=== PATIENT | female | born 1950 | race Caucasian/White ===

== ENCOUNTER 2020-04-28 15:42 | Emergency (ER) | payer OTHER, MEDICARE, SELFPAY ==
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
[2020-04-28 15:44] VITALS: BP 149/103; PULSE 109; RESP 20; TEMP 36.9; O2SAT 95
[2020-04-28 16:08] VITALS: BP 149/103; PULSE 109; RESP 20; TEMP 36.9; O2SAT 95
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
[2020-04-28 17:05] LABS: Estimated CRCL calculation 57 ml/min; Estimated Glomerular Filt Rate > 60
[2020-04-28 19:27] VITALS: BP 110/73; PULSE 90; RESP 18; O2SAT 100
== END 2020-04-28 19:29 | disposition home or self-care (01) ==
PROVIDERS: Emergency Provider Emergency Medicine
DX: S16.1XXA Strain of muscle, fascia and tendon at neck level, initial encounter (principal); S20.219A Contusion of unspecified front wall of thorax, initial encounter; V43.52XA Car driver injured in collision with other type car in traffic accident, initial encounter
CPT/HCPCS: 70450; 71260; 72125; 99284; Q9967

== ENCOUNTER → 2020-07-22 11:00 | Outpatient (CLI) | payer MEDICARE, SELFPAY ==
--- NOTE | ~2020-07-22 | XR_ITS ---
XR hip RT 2V w AP pelvis DATE: 07/22/2020 11:52 INDICATION: Right hip pain TECHNIQUE: AP pelvis. AP, lateral crosstable lateral views right hip COMPARISON: None FINDINGS: There is mild osteoarthritic spurring of the right femoral head and asymmetric moderate los s of height of the right hip joint. No fracture, dislocation, avascular necrosis or bone destruction of the right hip is detected. Pubic symphysis and sacroiliac joints are intact. No pelvic fracture or bone destruction. IMPRESSION: Right hip osteoarthritis Reviewed, dictated and finalized at location A. 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
== END ==
PROVIDERS: PCP Family Medicine; Visit Provider Nurse Practitioner Family
DX: M16.11 Unilateral primary osteoarthritis, right hip (principal)
CPT/HCPCS: 73502

== ENCOUNTER → 2020-08-26 12:57 | Outpatient (CLI) | payer MEDICARE, SELFPAY ==
--- NOTE | ~2020-08-26 | MR_ITS ---
EXAMINATION: MR hip RT wo con DATE: 08/26/2020 14:03 INDICATION: Right hip pain TECHNIQUE: Magnetic resonance imaging (MRI) of the right hip was performed without intravenous contr ast. Sequences included full-field axial PD-weighted FS FSE and T1-weighted FSE, coronal of the pelvi s with PD-weighted FS FSE, small field of view of the right hip with axial PD-weighted FS FSE, sagit nasir PD-weighted FS FSE and coronal PD weighted FS FSE. Additional radial T1-weighted FGR oriented ort hogonal to the acetabular rim were obtained for evaluation of the labrum. COMPARISON: Contrast dated 07/22/2020 FINDINGS: Bones/labrum/cartilage: Alignment is normal. No fracture, avascular necrosis or pathologic marrow replacing process. Moderat e to severe lumbar spondylosis. Moderate osteoarthritis at the right hip with anterosuperior predomin ant nonuniform joint space narrowing which appears underestimated on the prior radiographs likely due to plane of projection. There is cartilage loss with prominent subarticular edema along the anterosu perior right acetabulum as well as a small region of subarticular edema along the posterolateral aspe ct of the femoral head. There is associated degenerative tearing of the anterosuperior right acetabul um. Fluid: Small right hip joint effusion with synovitis with extension of a small amount of fluid with synoviti s into the right iliopsoas bursa. Soft tissues: Normal and symmetric muscle bulk and signal in the pelvis and visualized proximal thighs. Mild to mod erate tendinopathy of the distal right gluteus medius medias tendon without discrete tear. There is l eft gluteus medius and minimus bursitis with tendinopathy and partial-thickness tear of the distal le ft gluteus minimus tendon which appears attenuated and partial-thickness undersurface tear along the superior facet insertion of the left gluteus medius tendon. The bilateral Iliopsoas and proximal hams tring tendons are normal. Fibroid uterus. Mild scattered sigmoid diverticulosis without adjacent infl ammatory change to suggest diverticulitis. Limited evaluation of visceral organs of the pelvis is oth erwise unremarkable. No pathologically enlarged pelvic/inguinal lymphadenopathy. IMPRESSION: 1. Degenerative tearing of the anterosuperior right acetabular labrum and moderate right hip osteoart hritis with regions of high-grade chondromalacia and likely reactive small right hip joint effusion. 2. Mild left gluteus medius and minimus bursitis with partial thickness tears of the left gluteus med ius and minimus tendons. 3. Moderate tendinopathy of the right gluteus medius tendon without discrete tear. 4. Fibroid uterus. 5. Mild sigmoid diverticulosis. Reviewed, dictated and finalized at location A. 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 Degenerative tearing of the anterosuperior right acetabular labrum and moder ate right hip osteoarthritis with regions of high-grade chondromalacia and like ly reactive small right hip joint effusion. 2. Mild left gluteus medius and minimus bursitis with partial thickness tears o f the left gluteus medius and minimus tendons. 3. Moderate tendinopathy of the right gluteus medius tendon without discrete te ar. 4. Fibroid uterus. 5. Mild sigmoid diverticulosis.
== END ==
PROVIDERS: PCP Nurse Practitioner Family; Visit Provider Nurse Practitioner Family
DX: D25.9 Leiomyoma of uterus, unspecified (principal); K57.30 Diverticulosis of large intestine without perforation or abscess without bleeding; M16.11 Unilateral primary osteoarthritis, right hip
CPT/HCPCS: 73721

== ENCOUNTER 2020-09-30 13:17 | Outpatient (CLI) | payer MEDICARE, SELFPAY ==
--- NOTE | ~2020-09-30 | XR_ITS ---
EXAMINATION: XR lg joint inject/asp w image DATE: 09/30/2020 14:16 INDICATION: Right hip arthritis presenting with right hip pain TECHNIQUE: A time-out was performed to verify the patient's name, date of , and procedure to b e performed. The procedure including the risks, benefits, and alternatives was discussed with the pat ient. Risks discussed included bleeding, allergic reaction and infection. The patient understood the risks and agreed to proceed. The skin overlying the right hip joint was prepped and draped in usual sterile fashion. Anesthetic was administered with 1% lidocaine subcutaneously. A 22 G needle was ad vanced under fluoroscopic guidance into the joint. Injection of 0.6 mL of Omnipaque 240 confirmed in tra-articular position of the needle. Subsequently, injectate consisting of 3 mm of a 2:1 mixture of 0.5% bupivacaine: 80 mg/mL Depo-Medrol for a total dose of 80 mg Depo-Medrol was instilled. Washout of contrast was seen confirming intra-articular administration. The needle was removed and the entry site was cleaned and dressed. There were no immediate complications. Fluoroscopy exposure time was 0 .1 minutes. The total number of images was 2. FINDINGS: Real-time fluoroscopy demonstrates the needle in the right hip joint. Patient's pain prior to procedure:10/20. Patient's pain following the procedure: 09/22. IMPRESSION: 1. Right hip injection of local anesthetic and steroid with decrease in the patient's presenting pain . Reviewed, dictated and finalized at location A. 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 Right hip injection of local anesthetic and steroid with decrease in the pat ient's presenting pain.
== END 2020-09-30 13:18 | disposition home or self-care (01) ==
PROVIDERS: PCP Nurse Practitioner Family; Visit Provider Orthopaedic Surgery
DX: M16.11 Unilateral primary osteoarthritis, right hip (principal)
CPT/HCPCS: 20610; 77002; J1040; Q9966

== ENCOUNTER 2020-10-14 14:04 | Outpatient (CLI) | payer MEDICARE, SELFPAY | END 2020-10-14 14:05 | disposition home or self-care (01) | LOC: ANHCOVIDVC 14:04 | PROVIDERS: PCP Nurse Practitioner Family | DX: Z23 Encounter for immunization (principal) | CPT/HCPCS: 0001A; 91300 ==

== ENCOUNTER 2020-11-04 13:52 | Outpatient (CLI) | payer MEDICARE, SELFPAY | END 2020-11-04 13:53 | disposition home or self-care (01) | LOC: ANHCOVIDVC 13:52 | PROVIDERS: PCP Nurse Practitioner Family | DX: Z23 Encounter for immunization (principal) | CPT/HCPCS: 0002A; 91300 ==

== ENCOUNTER 2020-12-17 14:45 | Outpatient (CLI) | payer MEDICARE, SELFPAY ==
--- NOTE | ~2020-12-17 | MM_ITS ---
EXAMINATION: MM screening bin BI w sohan HISTORY: Screening TECHNIQUE: Craniocaudal and mediolateral oblique 3-D tomosynthesis images were obtained and synthetic 2-D images were generated. CAD analysis was submitted and interpreted. COMPARISON: Comparison to multiple prior studies sequentially, with oldest reviewed study dated 05/15. BREAST PARENCHYMAL COMPOSITION: The breasts are almost entirely fatty. FINDINGS: There is no evidence of suspicious mass, calcification, or architectural distortion to sugg est malignancy in either breast. There has been no suspicious interval change. IMPRESSION: 1. No mammographic evidence of malignancy. 2. Recommend routine screening mammography in one year. BI-RADS Category 1: Negative Reviewed, dictated and finalized at location A.
== END 2020-12-17 14:46 | disposition home or self-care (01) ==
LOC: ANHIMG 14:52
PROVIDERS: PCP Nurse Practitioner Family; Visit Provider Obstetrics & Gynecology
DX: Z12.31 Encounter for screening mammogram for malignant neoplasm of breast (principal)
CPT/HCPCS: 77063; 77067

== ENCOUNTER 2022-02-06 14:17 | Outpatient (CLI) | payer MEDICARE, SELFPAY ==
[2022-02-06 16:35] LABS: Cholesterol 180 mg/dL (0-200); HDL Direct 58 mg/dL; Triglycerides 150 mg/dL (<150)
[2022-02-06 16:45] LABS: LDL Cholesterol Direct 80 mg/dL
[2022-02-06 17:11] LABS: MALB Creatinine Ratio < 6.6 mg/g (0-30); Microalbumin Urine Random < 6.0 mg/L (0-16.7)
== END 2022-02-06 14:18 | disposition home or self-care (01) ==
LOC: ANHLAB 14:18
PROVIDERS: Nurse Practitioner Family; PCP Family Medicine; Visit Provider Family Medicine
DX: E11.9 Type 2 diabetes mellitus without complications (principal)
CPT/HCPCS: 36415; 80061; 82043

== ENCOUNTER 2022-07-12 13:03 | Outpatient (CLI) | payer MEDICARE, SELFPAY ==
[2022-07-12 17:33] LABS: Erythrocyte Sedimentation Rate 12 mm/hr (0-20)
== END 2022-07-12 13:04 | disposition home or self-care (01) ==
LOC: ANHLAB 13:30
PROVIDERS: PCP Family Medicine; Visit Provider Nurse Practitioner Family
DX: M25.50 Pain in unspecified joint (principal); H04.123 Dry eye syndrome of bilateral lacrimal glands; R68.2 Dry mouth, unspecified
CPT/HCPCS: 36415; 85652; 86038

== ENCOUNTER 2022-08-30 13:38 | Outpatient (CLI) | payer MEDICARE, SELFPAY ==
--- NOTE | ~2022-08-30 | DEXA_ITS ---
Bone Density Report Name: JERMAINE DALE Age: 72 Sex: Female Ethnicity: White Date of : 1950 Indication: postmenopausal; screening for osteoporosis; Referring Provider: GENNY SALINAS Study: Bone densitometry was performed. Exam Date: August 30, 2022 Accession number: [id number] Bone Density: Region BMD T-score Z-score Classification AP Spine(L1-L4) 1.056 0.1 2.3 Normal Femoral Neck (Left) 0.773 -0.7 1.2 Normal Total Hip (Left) 0.994 0.4 2.0 Normal Femoral Neck (Right) 0.824 -0.2 1.7 Normal Total Hip (Right) 0.945 0.0 1.6 Normal Total Hip Mean 0.969 0.2 1.8 Normal World Health Organization criteria for BMD impression classify patients as: Normal (T-score at or above -1.0), Osteopenia (T-score between -1.0 and -2.5), or Osteoporosis (T-score at or below -2.5). 10-year Fracture Risk: FRAX not reported because: All T-scores for Spine Total, Hip Total, Femoral Neck at or above -1.0 Previous Exams: Region Exam Age BMD T-score BMD Change BMD Change Date g/cm2 vs Baseline vs Previous AP Spine (L1-L4) 08/30/2022 72 1.056 0.1 0.075 (7.6%)* 0.075 (7.6%)* 08/19/2019 69 0.981 -0.6 Total Hip(Left) 08/30/2022 72 0.994 0.4 -0.133 (-11.8% -0.133 (-11.8% 08/19/2019 69 1.126 1.5 Total Hip(Right) 08/30/2022 72 0.945 0.0 -0.071 (-7.0%) -0.071 (-7.0%) 08/19/2019 69 1.016 0.6 *Denotes significance at 95% confidence level, LSC for AP Spine = 0.022 g/cm2, LSC for Total Hip = 0.027 g/cm2 # Denotes dissimilar scan types or analysis methods Clinical Information Provided by Patient: Has used the following medications: Vitamin D Patient maximum height was 61.5 Menopause Age: 58 No regular weight bearing exercise Drinks caffeinated beverages Onset of menses at age 12 Number of children 2 Impression: The patient has normal bone mass. The BMD for the Total Hip(Left) decreased, changing by -11.8% since the last DXA exam. Discussion: BONE DENSITY IS ABOVE THE MINIMUM DESIRABLE LEVEL AT ALL SKELETAL SITES TESTED. This patient?s bone mineral density is above the minimum desirable level (T-score -1.0 or better) at all sites measured. The patient should follow a healthful lifestyle (good nutrition with adequate calcium and vitamin D, and appropriate weight-bearing exercise). Follow-Up: Consider repeating this study in 3 to 4 years to reassess this patient's status, or sooner if there is some new clinical indication
--- NOTE | ~2022-08-30 | MM_ITS ---
EXAMINATION: MM screening bin BI w sohan HISTORY: Screening mammogram TECHNIQUE: Craniocaudal and mediolateral oblique 3-D tomosynthesis images were obtained and synthetic 2-D images were generated. CAD analysis was submitted and interpreted. COMPARISON: 12/17/2020, 08/19/2019, 09/20/2017 bilateral screening mammogram examinations BREAST PARENCHYMAL COMPOSITION: The breasts are almost entirely fatty. FINDINGS: Small stable benign circumscribed intramammary lymph node in the posterior upper outer quad rant of the right breast. There is no evidence of suspicious mass, calcification, or architectural di stortion to suggest malignancy in either breast. There has been no suspicious interval change. IMPRESSION: 1. No mammographic evidence of malignancy. 2. Recommend routine screening mammography in one year. BI-RADS Category 1: Negative Reviewed, dictated and finalized at location B. 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
== END 2022-08-30 13:39 | disposition home or self-care (01) ==
LOC: ANHIMG 13:39
PROVIDERS: PCP Family Medicine; Visit Provider Obstetrics & Gynecology
DX: Z12.31 Encounter for screening mammogram for malignant neoplasm of breast (principal); Z78.0 Asymptomatic menopausal state
CPT/HCPCS: 36415; 77063; 77067; 77080; 82607; 82728; 82746; 83540; 83550; 85025

== ENCOUNTER 2023-10-19 11:18 | Outpatient (CLI) | payer MEDICARE, SELFPAY ==
[2023-10-19 11:32] LABS: Hematocrit 37.8 % (37.0-47.0); Hemoglobin 12.2 g/dL (12.0-15.0); Mean Corpuscular HGB Conc 32.3 g/dl (32-36); Mean Corpuscular Hemoglobin 29.2 pg (26-34); Mean Corpuscular Volume 90.4 fl (80-100); Mean Platelet Volume 8.8 fl (7.4-10.4); Platelet Count Result 243 k/mm3 (150-375); Red Blood Count 4.18 M/mm3 (4.2-5.4); Red Cell Distribution Width 13.1 % (11.5-14.5); White Blood Count 7.5 K/mm3 (4.5-10.0)
[2023-10-19 15:15] LABS: Alanine Aminotransferase 27 U/L (6-35); Albumin Level 4.5 g/dL (3.5-5.1); Alkaline Phosphatase 75 U/L (38-126); Anion Gap 5 mmol/L (8-16); Aspartate Amino Transferase 28 U/L (14-36); Bilirubin,Total 0.4 mg/dL (0.2-1.3); Blood Urea Nitrogen 11 mg/dL (7-17); Calcium 9.9 mg/dL (8.4-10.2); Carbon Dioxide 32 mmol/L (22-30); Chloride 99 mmol/L (98-107); Cholesterol 146 mg/dL (0-200); Estimated Glomerular Filt Rate > 60; Glucose 125 mg/dL (65-110); HDL Direct 68 mg/dL; Potassium 4.5 mmol/L (3.4-5.0); Sodium 136 mmol/L (137-145); Triglycerides 95 mg/dL (<150)
[2023-10-19 15:20] LABS: Creatinine Urine 113.8 mg/dL
[2023-10-19 15:21] LABS: MALB Creatinine Ratio 6.6 mg/g (0-30); Microalbumin Urine Random 7.5 mg/L (0-16.7)
[2023-10-19 15:27] LABS: LDL Cholesterol Direct 72 mg/dL
[2023-10-19 16:06] LABS: Hemoglobin A1C 6.9 % (<5.7)
[2023-10-19 16:52] LABS: Vitamin D 25 Hydroxy 69.7 ng/mL
== END 2023-10-19 11:19 | disposition home or self-care (01) ==
LOC: ANHLAB 11:21
PROVIDERS: Nurse Practitioner Family; PCP Family Medicine; Visit Provider Internal Medicine Hematology & Oncology
DX: Z13.29 Encounter for screening for other suspected endocrine disorder (principal); E11.9 Type 2 diabetes mellitus without complications; I10 Essential (primary) hypertension; E55.9 Vitamin D deficiency, unspecified; K58.0 Irritable bowel syndrome with diarrhea
CPT/HCPCS: 36415; 80053; 80061; 82043; 82306; 83036; 84443; 85027

== ENCOUNTER 2023-11-01 16:35 | Outpatient (CLI) | payer MEDICARE, SELFPAY ==
--- NOTE | ~2023-11-01 | MM_ITS ---
EXAMINATION: MM screening bin BI w sohan HISTORY: Screening TECHNIQUE: Craniocaudal and mediolateral oblique 3-D tomosynthesis images were obtained and synthetic 2-D images were generated. CAD analysis was submitted and interpreted. COMPARISON: Comparison to multiple prior studies sequentially, with oldest reviewed study dated 10/2016. BREAST PARENCHYMAL COMPOSITION: Not Dense: Breast are almost entirely fatty. FINDINGS: There is no evidence of suspicious mass, calcification, or architectural distortion to sugg est malignancy in either breast. There has been no suspicious interval change. IMPRESSION: 1. No mammographic evidence of malignancy. 2. Recommend routine screening mammography in one year. BI-RADS Category 1: Negative Reviewed, dictated and finalized at location A.
== END 2023-11-01 16:36 | disposition home or self-care (01) ==
PROVIDERS: PCP Family Medicine; Visit Provider Obstetrics & Gynecology
DX: Z12.31 Encounter for screening mammogram for malignant neoplasm of breast (principal)
CPT/HCPCS: 77063; 77067

== ENCOUNTER 2024-03-05 09:25 | Outpatient (CLI) | payer MEDICARE, SELFPAY ==
--- NOTE | 2024-03-05 11:00 | NEURO_ITS ---
Impression: # Complains of numbness of left hand. # Moderate left Carpal Tunnel Syndrome. 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 # Needle/EMG exam mildly abnormal in left APB. Nerve Conduction Studies Anti Sensory Summary Table Stim Site NR Peak (ms) P-T Amp (?V) Site1 Site2 Delta-P (ms) Dist (cm) Toni (m/s) Left Median Anti Sensory (2-3nd Digit) Wrist 6.3 15.2 Wrist 2-3nd Digit 6.3 14.0 22 Wrist 6.4 26.5 Wrist 2-3nd Digit 6.3 14.0 22 Left Radial Anti Sensory (Base 1st Digit) Wrist 2.3 29.6 Wrist Base 1st Digit 2.3 0.0 Left Ulnar Anti Sensory (5th Digit) Wrist 2.7 55.9 Wrist 5th Digit 2.7 14.0 52 Motor Summary Table Stim Site NR Onset (ms) O-P Amp (mV) Site1 Site2 Delta-0 (ms) Dist (cm) Toni (m/s) Left Median Motor (Abd Poll Brev) Wrist 6.9 4.0 Elbow Wrist 5.4 29.0 54 Elbow 12.3 3.6 Left Ulnar Motor (Abd Dig Minimi) Wrist 2.4 8.7 A Elbow Wrist 5.7 29.0 51 A Elbow 8.1 7.5 B Elbow Wrist 3.8 21.0 55 B Elbow 6.2 7.2 F Wave Studies NR F-Lat (ms) L-R F-Lat (ms) Left Median (Mrkrs) (Abd Poll Brev) 29.65 Left Ulnar (Mrkrs) (Abd Dig Min) 25.52 EMG Side Muscle Nerve Root Ins Act Fibs Amp Dur Recrt Comment Left 1stDorInt Ulnar C8-T1 Nml Nml Nml Nml Nml Left Ext Indicis Radial (Post Int) C7-8 Nml Nml Nml Nml Nml Left Ext Digitorum Radial (Post Int) C7-8 Nml Nml Nml Nml Nml Left BrachioRad Radial C5-6 Nml Nml Nml Nml Nml Left PronatorTeres Median C6-7 Nml Nml Nml Nml Nml Left Abd Poll Brev Median C8-T1 Nml Nml Nml >12ms +1 Left ABD Dig Min Ulnar C8-T1 Nml Nml Nml Nml Nml MTDD
== END 2024-03-05 09:26 | disposition home or self-care (01) ==
PROVIDERS: PCP Family Medicine; Visit Provider Nurse Practitioner Family
DX: R20.0 Anesthesia of skin (principal); G56.02 Carpal tunnel syndrome, left upper limb; G56.22 Lesion of ulnar nerve, left upper limb
CPT/HCPCS: 95886; 95909

== ENCOUNTER → 2024-08-26 15:43 | Outpatient (REF) | payer MEDICARE, SELFPAY | LOC: ANHLAB 15:43 | PROVIDERS: Visit Provider Plastic Surgery | DX: D04.39 Carcinoma in situ of skin of other parts of face (principal) | CPT/HCPCS: 88305 ==

== ENCOUNTER 2024-10-10 14:30 | Outpatient (CLI) | payer MEDICARE, SELFPAY | END 2024-10-10 14:31 | disposition home or self-care (01) | PROVIDERS: PCP Family Medicine; Visit Provider Nurse Practitioner Family | DX: M25.571 Pain in right ankle and joints of right foot (principal) | CPT/HCPCS: 73600 ==

== ENCOUNTER → 2024-10-28 15:27 | Outpatient (REF) | payer MEDICARE, SELFPAY ==
--- OUTSIDE RECORDS SUMMARY | 2024-10-28 17:24 | XMS_ITS | Clinical Summary ---
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 Active sertraline (ZOLOFT) 50 mg tablet Take 50 mg by mouth daily. Active eluxadoline (Viberzi) 100 mg Tablet Take by mouth. Activ e amitriptyline (ELAVIL) 75 mg tablet Take 75 mg by mouth daily at bedtime. Active metFORMIN (GLUCOPHAGE) 1,000 mg tablet Take 1,000 mg by mouth daily with breakfast. Active atorvastatin (LIPITOR) 10 mg tablet Take 10 mg by mouth daily. Active enalapril (VASOTEC) 5 mg tablet Take 5 mg by mouth daily. Active aspirin (ECOTRIN EC) 81 mg Tablet, Delayed Release (E.C.) Take 81 mg by mouth daily. Active LATANOPROST OP 2.5 mL by Ophthalmic route. Active CALCIUM CARBONATE-VITAM IN D3 ORAL Take by mouth. Acti ve celecoxib (CeleBREX) 100 mg capsule Take 200 mg by mouth daily. Active sertraline (ZOLOFT) 100 mg tablet Take 100 mg by mouth daily. 2 Active Ozempic 0.25 mg or 0.5 mg (2 mg/3 mL) Pen Injector ADMINISTER 0.25 MG UNDER THE SKIN WEEKLY FOR 4 WEEKS 3 Active Active Problems Problem Noted Date Diagnosed Date Other dietary vitamin B12 deficiency anemia 08/13 Chronic anemia 08/23/2021 Encounters Date Type Department Care Team Description 10/18/2024 External Device Data ST[facility] ABSTRACTION Provider, Abstract 10/17/2024 External Device Data ST[facility] ABSTRACTION Provider, Abstract 10/15/2024 External Device Data ST[facility] ABSTRACTION Provider, Abstract 10/01/2024 External Device Data ST[facility] ABSTRACTION Provider, Abstract 09/09/2024 External Device Data ST[facility] ABSTRACTION Provider, Abstract 09/03/2024 External Device Data ST[facility] ABSTRACTION Provider, Abstract 09/03/2024 External Device Data STL ABSTRACTION Provider, Abstract from Last 3 Months Family History Medical History Relation Name Comments Melanoma Brother 2 Prostate Cancer Brother 2 Skin Cancer Brother 2 Colon Cancer Father Heart Attack Father Heart Disease Father Prostate Cancer Father Skin Cancer Father Atrial fibrillation Mother Relation Name Status Comments Brother 1 Alive Brother 2 Alive Father Mother Alive Son 1 Alive Son 2 Alive Social History Tobacco Use Types Packs/Day Years Used Date Smoking Tobacco: Never Smokeless Tobacco: Never Tobacco Cessation:Counseling Given: Not Answered Alcohol Use Standard Drinks/Week Comments Yes 0 (1 standard drink = 0.6 oz pur e alcohol) Comments No Sex and Gender Information Value Date Recorded Sex Assigned at Not on file Legal Sex Female 12:46 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 Gender Identity Not on file Sexual Orientation Not on file Last Filed Vital Signs Vital Sign Reading Time Taken Comments Blood Pressure 131/76 07/16/2024 2:25 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 Pulse 79 07/16/2024 2:25 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 Temperature 36.4 C (97.5 F) 07/16/2024 2:25 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 Respiratory Rate 16 07/16/2024 2:25 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 Oxygen Saturation 93% 07/16/2024 2:25 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 Inhaled Oxygen Concentration - - Weight 80.7 kg (178 lb) 07/16/2024 2:25 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 Height 154.9 cm (5' 1 ) 03/13/2022 1:25 PM CDT Body Mass Index 33.63 03/13/2022 1:25 PM CDT Plan of Treatment Upcoming Encounters Date Type Department Care Team (Late st Contact Info) Description 11/13/2024 1:15 PM CDT Office Visit [facility] Oncology and Hematology - [place] [address] [facility] [address] [place] [id number] Chris Paniagua MD [id number] [facility] [address] [place] [address] Health Maintenance Due Date Last Done Comments DTAP/TDAP/TD VACCINES (1 - Tdap) 1970 BREAST CANCER SCREENING 1991 COLORECTAL SCREENING 1996 Colorectal Cancer Screening 1996 FIT-DNA Q 3 years 1996 FIT/FOBT Q 1 year 1996 Flex Sig/CT Colonography Q 5 years 1996 PNEUMOCOCCAL VACCINE 50+ YEARS (1 of 1 - PCV) 03/28/20 ZOSTER VACCINE (1 of 2) 2001 OSTEOPOROSIS SCREENING 2016 INFLUENZA VACCINE (#1) 2024 Medicare Advantage (SD) Prev entative Visit/Annual Wellness Visit 08/13/2024 RSV VACCINE (60+ or ) (1 - 1-dose 75+ series) 2026 Insurance [employer] [facility] [place] [facility] Care Teams Kindergarten Prep Teacher Relationship Specialty Start Date End Date Anshul Flores MD [address] [place] [address] PCP - General Family Practice 02/28/23
--- OUTSIDE RECORDS SUMMARY | 2024-10-28 17:24 | XMS_ITS | Continuity of Care Document ---
Author Organization [facility] Address [address] [place] [address] [place] [address] Phone Care Team Providers Care Hat Conditioner Name Role Phone Savana LAMONTOma Gregorio Unavailable Unavailable Procedures Procedure Date PT RE-EVALUATION THERAPEUTIC EXERCISES NEUROMUSCULAR RE-ED MANUAL THERAPY FUNC ACTIVITY 15 MIN HOT/COLD PACK THERAPEUTIC EXERCISES NEUROMUSCULAR RE-ED MANUAL THERAPY FUNC ACTIVITY 15 MIN HOT/COLD PACK THERAPEUTIC EXERCISES NEUROMUSCULAR RE-ED MANUAL THERAPY FUNC ACTIVITY 15 MIN HOT/COLD PACK ELECTRIC STIMULATION THERAPEUTIC EXERCISES NEUROMUSCULAR RE-ED MANUAL THERAPY FUNC ACTIVITY 15 MIN ELECTRIC STIMULATION UNA THERAPEUTIC EXERCISES NEUROMUSCULAR RE-ED MANUAL THERAPY FUNC ACTIVITY 15 MIN HOT/COLD PACK THERAPEUTIC EXERCISES NEUROMUSCULAR RE-ED MANUAL THERAPY FUNC ACTIVITY 15 MIN HOT/COLD PACK THERAPEUTIC EXERCISES NEUROMUSCULAR RE-ED MANUAL THERAPY FUNC ACTIVITY 15 MIN HOT/COLD PACK THERAPEUTIC EXERCISES NEUROMUSCULAR RE-ED MANUAL THERAPY FUNC ACTIVITY 15 MIN HOT/COLD PACK PT RE-EVALUATION THERAPEUTIC EXERCISES NEUROMUSCULAR RE-ED MANUAL THERAPY FUNC ACTIVITY 15 MIN THERAPEUTIC EXERCISES NEUROMUSCULAR RE-ED MANUAL THERAPY FUNC ACTIVITY 15 MIN HOT/COLD PACK THERAPEUTIC EXERCISES NEUROMUSCULAR RE-ED MANUAL THERAPY FUNC ACTIVITY 15 MIN HOT/COLD PACK ELECTRIC STIMULATION UNATT THERAPEUTIC EXERCISES NEUROMUSCULAR RE-ED MANUAL THERAPY FUNC ACTIVITY 15 MIN HOT/COLD PACK ELECTRIC STIMULATION UNA THERAPEUTIC EXERCISES NEUROMUSCULAR RE-ED MANUAL THERAPY FUNC ACTIVITY 15 MIN HOT/COLD PACK THERAPEUTIC EXERCISES NEUROMUSCULAR RE-ED MANUAL THERAPY FUNC ACTIVITY 15 MIN HOT/COLD PACK THERAPEUTIC EXERCISES NEUROMUSCULAR RE-ED MANUAL THERAPY FUNC ACTIVITY 15 MIN HOT/COLD PACK THERAPEUTIC EXERCISES NEUROMUSCULAR RE-ED MANUAL THERAPY FUNC ACTIVITY 15 MIN HOT/COLD PACK PT RE-EVALUATION THERAPEUTIC EXERCISES NEUROMUSCULAR RE-ED MANUAL THERAPY FUNC ACTIVITY 15 MIN HOT/COLD PACK THERAPEUTIC EXERCISES NEUROMUSCULAR RE-ED MANUAL THERAPY FUNC ACTIVITY 15 MIN HOT/COLD PACK THERAPEUTIC EXERCISES NEUROMUSCULAR RE-ED MANUAL THERAPY FUNC ACTIVITY 15 MIN HOT/COLD PACK THERAPEUTIC EXERCISES NEUROMUSCULAR RE-ED MANUAL THERAPY GAIT TRAINING 15 MIN HOT/COLD PACK PT EVALUATION THERAPEUTIC EXERCISES MANUAL THERAPY GAIT TRAINING 15 MIN HOT/COLD PACK Advance Directives Directive Yes / No Effective Date File Name No Information Encounters Encounter Description Practice Location Reason(s) For Visit Diagnoses Date Provider Providers Copied on Encounter [address], [id number], tel:[phone] [place] No Information 3 Sawant Oma. [address] [place] [address], [facility] [address], [place], [facility], . tel:[phone] Referring Provider: Elias Simpson, [facility] [address] [place] [address], [facility]. tel:[phone] [place] [address], [id number], tel:[phone] [place] No Information 3 Sawant Oma. [address] [place] [address], [address], [place], [facility], . tel: [phone] Referring Provider: Elias Simpson, [facility] [address] [place] [address] [address], [place], [address]. tel:[phone] [place] [address] [address], [id number], tel:[phone] [place] No Information 3 Sawant Oma. [address] [place] [address], [address], [place], [facility], . tel:[phone] Referring Provider: Elias Simpson, [facility] [address] [place] [address] [address], [place], [address]. tel:[phone] [address], [id number], tel:[phone] [place] No Information 1 5-201 3 Sawant Oma. [address] [place] [address], [address], [place], [facility], . tel:[phone] Referring Provider: Elias Simpson, [facility] [address] [place] [address] [address], [place], [address]. tel:[phone] [place], [place] [address]u[address], [id number], tel:[phone] [place] No Information Nov-1 0-201 3 Sawant Oma. [address] [place] [address], [address], [place], [facility], . tel:[phone] Referring Provider: Elias Simpson, [facility] [address] [place] [address] [address], [place], [facility]. tel:[phone] [place] [address] [place] [address] [address], [id number], tel:[phone] [place] No Information Nov-0 8-201 3 Sawant Oma. [address] [place] [address], [address], [place], [facility], . tel:[phone] Referring Provider: Elias Simpson, [facility] [address] [place] [address] [address], [place], [address]. tel:[phone] [place], [place] [address], [id number], tel:[phone] [place] No Information 0 5-201 3 Sawant Oma. [address] [place] [address], [address], [facility], . tel:[phone] Referring Provider: Elias Simpson, [facility] [address] [place] [address] [address], [place], [address]. tel:[phone] [address], [id number], tel:[phone] [place] No Information Apr-0 3-201 3 Sawant Oma. [address] [place] [address], [address], [place], [facility], . tel:[phone] Referring Provider: Elias Simpson, [facility] [address] [place] [address] [address], [place], [address]. tel:[phone] [place], [place] [address], [id number], tel:[phone] [place] No Information Apr-0 1-201 3 Sawant Oma. [address] [place] [address], [address], [place], [facility], . tel:[phone] Referring Provider: Elias Simpson, [facility] [address] [place] [address] [address], [place], [facility]. tel:[phone] [place], [place] [address], [id number], tel:[phone] [place] No Information Mar-2 7-201 3 Sawant Oma. [address] [place] [address], [address], [place], [facility], . tel:[phone] Referring Provider: Elias Simpson, [facility] [address] [place] [address] [address], [place], [address]. tel:[phone] [place], [place] [address], [id number], tel:[phone] [place] No Information Mar-2 6-201 3 Sawant Oma. [address] [place] [address], [address], [facility], . tel:[phone] Referring Provider: Elias Simpson, [facility] [address] [place] [address] [address], [place], [address]. tel:[phone] [address], [id number], tel:[phone] [place] No Information Mar-2 5-201 3 Sawant Oma. [address] [place] [address], [address], [place], [facility], . tel:[phone] Referring Provider: Elias Simpson, [facility] [address] [place] [address] [address], [place], [address]. tel:[phone] [place], [place] [address], [id number], tel:[phone] [place] No Information Mar-2 0-201 3 Sawant Oma. [address] [place] [address], [address], [place], [facility], . tel:[phone] Referring Provider: Elias Simpson, [facility] [address] [place] [address] [address], [place], [facility]. tel:[phone] [place], [place] [address], [id number], tel:[phone] [place] No Information Mar-1 9-201 3 Sawant Oma. [address] [place] [address], [address], [facility], . tel:[phone] Referring Provider: Elias Simpson, [facility] [address] [place] [address] [address], [place], [address]. tel:[phone] [place], [place] [address], [id number], tel:[phone] [place] No Information Mar-1 8-201 3 Sawant Oma. [address] [place] [address], [address], [place], [facility], . tel:[phone] Referring Provider: Elias Simpson, [facility] [address] [place] [address] [address], [place], [address]. tel:[phone] [address], [id number], tel:[phone] [place] No Information Mar-1 5-201 3 Sawant Oma. [address] [place] [address], [address], [place], [facility], . tel:[phone] Referring Provider: Elias Simpson, [facility] [address] [place] [address] [address], [place], [facility]. tel:[phone] [place], [place] [address], [id number], tel:[phone] [place] No Information Mar-1 3-201 3 Sawant Oma. [address] [place] [address], [address], [place], [facility], . tel:[phone] Referring Provider: Elias Simpson, [facility] [address] [place] [address] [address], [place], [facility]. tel:[phone] [place], [place] [address] [address], [id number], tel:[phone] [place] No Information Mar-1 1-201 3 Sawant Oma. [address] [place] [address], [address], [place], [facility], . tel:[phone] Referring Provider: Elias Simpson, [facility] [address] [place] [address] [address], [place], [address]. tel:[phone] [place], [place] [address], [id number], tel:[phone] [place] No Information Mar-0 8-201 3 Sawant Oma. [address] [place] [address], [address], [place], [facility], . tel:[phone] Referring Provider: Elias Simpson, [facility] [address] [place] [address] [address], [place], [address]. tel:[phone] [place] [address] [address], [place], [place], [id number], tel:[phone] [place] No Information Mar-0 6-201 3 Sawant Oma. [address] [place] [address], [address], [place], [facility], . tel:[phone] Referring Provider: Elias Simpson, [facility] [address] [place] [address] [address], [place], [address]. tel:[phone] [facility] [address] [facility], [place], [place], [id number], tel:[phone] [place] Pain in joint involving lower leg Mar-0 4-201 3 Sawant Oma. [address] [facility], [address], [place], [address], . tel:[phone] Referring Provider: Elias Simpson, [facility] [address] [place] [address] [address], [place], [address]. tel:[phone] Family History Family Member Type Diagnosis Age At Onset No Information Payers Payer name Insurance type Covered libertarian ID [facility] [id number] [facility] [place] Social History Type Description Quantity Date Captured Comments Sex Female Smoking Status No Information Chief Complaint And Reason For Visit No Information Reason For Referral Reason For Referral No Information History Of Present Illness Encounter Date Complaint History Of Prese nt Illness No Information Functional Status Date Functional Assessmen t No Information Instructions Date Instruction Additional Infor mation No Information Assessments Type Assessment Date No Information Patient Care Teams Name Effective Dates (start - stop) Status Members No Information
== END ==
LOC: ANHLAB 15:27
PROVIDERS: Visit Provider Plastic Surgery
DX: L90.5 Scar conditions and fibrosis of skin (principal)
CPT/HCPCS: 88305

== ENCOUNTER 2024-11-11 12:23 | Outpatient (CLI) | payer MEDICARE, SELFPAY ==
[2024-11-11 13:19] LABS: Anion Gap 12 mmol/L (4-12); Blood Urea Nitrogen 9 mg/dL (7-17); Calcium 9.8 mg/dL (8.4-10.2); Carbon Dioxide 29 mmol/L (22-30); Chloride 98 mmol/L (98-107); Estimated Glomerular Filt Rate > 60; Glucose 110 mg/dL (65-110); Potassium 4.3 mmol/L (3.4-5.0); Sodium 139 mmol/L (137-145)
--- OUTSIDE RECORDS SUMMARY | 2024-11-11 13:45 | XMS_ITS | Encounter Summary ---
Author Organization [facility] [place] Address [address] [place] [address] Care Team Providers Care Board Setter Name Role Phone Anshul Flores MD Primary Care Provider [phone] Encounter Details Date Type Department Care Team (Late Contact Info) Description 11/11/2024 Orders Only [facility] Oncology and Hematology [facility] [address] [place] [address] Chris Paniagua MD [address] [place], [place] [address] [address] [place] [address] Social History Tobacco Use Types Packs/Day Years Used Date Smoking Tobacco: Never Smokeless Tobacco: Never Alcohol Use Standard Drinks/Week Comments Yes 0 (1 standard drink = 0.6 oz pur e alcohol) Comments No Sex and Gender Information Value Date Recorded Sex Assigned at Not on file 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 Sex 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 Gender Identity Not on file Sexual Orientation Not on file documented as of this encounter Plan of Treatment Upcoming Encounters Date Type Department Care Team (Late st Contact Info) Description 11/13/2024 1:15 PM CDT Office Visit [facility] Oncology and Hematology [place] [address] [place] [address] Chris Paniagua MD [address] [place], [place] [address] [address] [place] [address] documented as of this encounter Procedures Procedure Name Priority Date/Time Associated Diagnosis Comments CBC MIXED CELL DIFFERENTIAL Routine 11/10/2024 12:54 PM CDT IRON, TIBC, AND PERCENT SATURATION Routine 11/10/2024 12:52 PM CDT documented in this encounter Results * CBC MIXED CELL DIFFERENTIAL (11/10/2024 12:54 PM CDT) Blood us Chris Paniagua MD HEMATOLOGY ORDERABLES Final Res ult * IRON, TIBC, AND PERCENT SATURATION (11/10/2024 12:52 PM CDT) Blood us Chris Paniagua MD CHEMISTRY ORDERABLES Final Resu lt documented in this encounter Visit Diagnoses Not on filedocumented in this encounter Care Teams Board Setter Relationship Specialty Start Date End Date Anshul Flores MD [address] [place] [address] PCP - General Family Practice 02/28/23 documented as of this encounter
--- OUTSIDE RECORDS SUMMARY | 2024-11-11 13:45 | XMS_ITS | Clinical Summary ---
Author Organization [facility] Brigida Christianson Address [address] [place] [address] Care Team Providers Care Chief Credit Officer Name Role Phone Anshul Flores MD Primary Care Provider [phone] Allergies No known active allergies Medications omeprazole [...] Encounters Date Type Department Care Team Description 11/11/2024 Orders Only [facility] Oncology and Hematology - [place] [address] [place] [address] Chris Paniagua MD 10/29/2024 External Device Data [facility] Provider, Abstract 10/18/2024 External Device Data [place] Provider, [...] on file Legal Sex Female 12:46 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 Gender Identity Not on file Sexual Orientation Not on file Last Filed Vital Signs Vital Sign Reading Time Taken Comments Blood Pressure 131/76 07/16/2024 2:25 PM GILL BOX FIXER Pulse 79 07/16/2024 2:25 PM GILL BOX FIXER Temperature 36.4 C (97.5 F) 07/16/2024 2:25 PM GILL BOX FIXER Respiratory Rate 16 07/16/2024 2:25 PM GILL BOX FIXER Oxygen Saturation 93% 07/16/2024 2:25 PM GILL BOX FIXER Inhaled Oxygen Concentration - - Weight 80.7 kg (178 lb) 07/16/2024 2:25 PM GILL BOX FIXER Height 154.9 cm (5' 1 ) 03/13/2022 1:25 PM CDT Body Mass Index 33.63 03/13/2022 1:25 PM CDT Plan of Treatment Upcoming Encounters Date Type Department Care Team (Late st Contact Info) Description 11/13/2024 1:15 PM CDT Office Visit [facility] Oncology and Hematology [facility] [address] [place] [address] Chris Paniagua MD [address] [facility] [address] [place] [address] Health Maintenance Due Date Last [...] 2016 INFLUENZA VACCINE (#1) 2024 Medicare [place] ([place]) Prev entative Visit/Annual Wellness Visit 08/13/2024 RSV VACCINE (60+ or ) (1 - 1-dose 75+ series) 2026 Procedures Procedure Name Priority Date/Time Associated Diagnosis Comments CBC MIXED CELL DIFFERENTIAL Routine 11/10/2024 12:54 PM CDT IRON, TIBC, AND PERCENT SATURATION Routine 11/10/2024 12:52 PM CDT from Last 3 Months Results * CBC MIXED CELL DIFFERENTIAL (11/10/2024 12:54 PM CDT) Blood us Chris Paniagua MD HEMATOLOGY ORDERABLES Final Res ult * IRON, TIBC, AND PERCENT SATURATION (11/10/2024 12:52 PM CDT) Blood us Chris Paniagua MD CHEMISTRY ORDERABLES Final Resu lt from Last 3 Months Insurance [facility] [employer] PLUS [facility] Care Teams Chief Credit Officer Relationship Specialty Start Date End Date Anshul Flores MD [address] [place] [address] PCP - General Family Practice 02/28/23
== END 2024-11-11 12:24 | disposition home or self-care (01) ==
LOC: ANHSURGERY 12:36
PROVIDERS: Anesthesiology; PCP Nurse Practitioner Family; Visit Provider Plastic Surgery
DX: E11.9 Type 2 diabetes mellitus without complications (principal)
CPT/HCPCS: 36415; 80048

== ENCOUNTER 2024-11-19 00:06 | Day surgery (SDC) | payer MEDICARE, SELFPAY ==
[2024-11-05 15:21] VITALS: BMI 34.4
--- NOTE | 2024-11-05 15:38 | PC.NURSE ---
Report to the Outpatient Waiting Room, entrance under the green pavilion located off [facility], at time __0600am on date __11/19/24 . Planned Procedure Time: _0730am .? Time changes happen often and if your time is changed the preop area will call you the afternoon before. - You and your visitor will be asked to self-screen and do not enter if you have any COVID symptoms. Please call surgeon if you need to reschedule. - A mask is optional within the hospital at this time. Patients may have No food or drink from midnight until time of surgery and no smoking, or chewing tobacco (or any form of nicotine). No chewing gum, candy or mints. Take only the following medications with a SIP of water on the morning of surgery: ___None DO NOT STOP ANY OF YOUR OTHER PRESCRIPTION MEDICATIONS PRIOR TO SURGERY EXCEPT THE FOLLOWING Hold all vitamins and supplements for 3 days per anesthesiologist.Date of last dose is 11/14/24 Medications to discontinue per physician None Date to take last dose None Please no make-up, nail croatian, hairspray, perfume, deodorant, or body powder the day of surgery.? No jewelry (including any body piercings) or valuables the day of surgery, leave them at home.? Please take a shower or bath the night before, or the morning of, surgery with an antibacterial soap.? Wear comfortable, loose fitting clothing.? - Jewelry must be removed prior to entering the operating room.? Rings and piercings that are not removed may be cut off. - The hospital will not accept responsibility for valuables.? - Please leave all valuables, including medications, at home the day of surgery. If you are going home after surgery, a licensed dedicated intermodal truck driver must drive you home.? - NO public transportation without another adult if you receive anesthesia. - We recommend that an adult stay with you for 24 hours following discharge. - We also recommend that you do not drive, make important decision, drink alcoholic beverages, or take any drugs that were not prescribed by your health care provider for at least 24 hours after your discharge time. Follow any additional instructions given to you from your surgeon. Telephone instructions given to __Patient and asked if any additional questions and then verbalized understanding. Patient advised to call surgeon office or pre surgery nurse liaison [phone] if any additional questions.
--- OUTSIDE RECORDS SUMMARY | 2024-11-19 00:09 | XMS_ITS | Clinical Summary ---
Author Organization [facility] Brigida Christianson Address [address] [place] [address] Care Team Providers Care International Marketing Manager Name Role Phone Anshul Flores MD Primary Care Provider Allergies No known active allergies Medications omeprazole [...] Encounters Date Type Department Care Team Description 11/14/2024 Telephone [facility] Oncology and Hematology [facility] [address] [place] [address] Chris Paniagua MD [facility] 11/13/2024 1:15 PM CDT Office Visit [facility] Oncology and Hematology [place] [address] [place] [address] Chris Paniagua MD Chronic anemia (Primary Dx) 11/11/2024 Orders Only [facility] Oncology and Hematology [place] [address] [place] [address] Chris Paniagua MD 10/29/2024 External Device Data [...] on file Legal Sex Female 12:46 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 Gender Identity Not on file Sexual Orientation Not on file Last Filed Vital Signs Vital Sign Reading Time Taken Comments Blood Pressure 132/73 11/13/2024 1:17 PM CDT Pulse 76 11/13/2024 1:17 PM CDT Temperature 35.7 C (96.3 F) 11/13/2024 1:17 PM CDT Respiratory Rate 15 11/13/2024 1:17 PM CDT Oxygen Saturation 92% 11/13/2024 1:17 PM CDT Inhaled Oxygen Concentration - - Weight 81.6 kg (179 lb 12.8 oz) 11/13/2024 1:17 PM CDT Height 154.9 cm (5' 1 ) 03/13/2022 1:25 PM CDT Body Mass Index 33.97 03/13/2022 1:25 PM CDT Plan of Treatment Upcoming Encounters Date Type Department Care Team (Late st Contact Info) Description 04/02/2025 2:15 PM CDT Office Visit [facility] Oncology and Hematology [facility] [address] [facility] [address] [place] [address] Chris Paniagua MD [address] [facility] [address] [place] [address] Health Maintenance Due Date Last [...] 2016 INFLUENZA VACCINE (#1) 2024 [place] Prev entative Visit/Annual Wellness Visit 08/13/2024 RSV VACCINE (60+ or ) (1 - 1-dose 75+ series) 2026 Procedures Procedure Name Priority Date/Time Associated Diagnosis Comments CBC MIXED CELL DIFFERENTIAL Routine 11/10/2024 12:54 PM CDT IRON, TIBC, AND PERCENT SATURATION Routine 11/10/2024 12:52 PM CDT from Last 3 Months Results * CBC MIXED CELL DIFFERENTIAL (11/10/2024 12:54 PM CDT) Blood Chris Paniagua MD HEMATOLOGY ORDERABLES Final Res ult * IRON, TIBC, AND PERCENT SATURATION (11/10/2024 12:52 PM CDT) Blood Chris Paniagua MD CHEMISTRY ORDERABLES Final Resu lt from Last 3 Months Insurance [employer] PLUS [facility] [place] Care Teams International Marketing Manager Relationship Specialty Start Date End Date Anshul Flores MD [address] [place] [address] PCP - General Family Practice 02/28/23
--- OUTSIDE RECORDS SUMMARY | 2024-11-19 00:09 | XMS_ITS | Continuity of Care Document ---
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 [address] [place] [address], [facility] [address], [place], [facility], . tel:[phone] Referring Provider: Elias Simpson, [facility] [address] [place] [address], [facility]. tel:[phone] [place] [address], [id number], tel:[phone] [place] No Information 3 Sawant Oma. [address] [place] [address], [address], [place], [facility], . tel:[phone] Referring Provider: Elias Simpson, [facility] [address] [place] [address] [address], [place], [address]. tel:[phone] [place] [address] [address], [id number], tel:[phone] [place] No Information 3 Sawant Oma. [address] [place] [address], [address], [facility], . tel:[phone] Referring Provider: Elias Simpson, [facility] [address] [place] [address] [address], [place], [address]. tel:[phone] [address], [id number], tel:[phone] [place] No Information 1 5-201 3 Sawant Oma. [address] [place] [address], [address], [facility], . tel:[phone] Referring Provider: Elias Simpson, [facility] [address] [place] [address] [address], [place], [address]. tel:[phone] [place], [place] [address], [id number], tel:[phone] [place] No Information Nov-1 0-201 3 Sawant Oma. [address] [place] [address], [address], [facility], . tel:[phone] Referring Provider: Elias Simpson, [facility] [address] [place] [address] [address], [place], [facility]. tel:[phone] [place], [place] [address] [address], [id number], tel:[phone] [place] No Information Nov-0 8-201 3 Sawant Oma. [address] [place] [address], [address], [facility], . tel:[phone] Referring Provider: Elias Simpson, [facility] [address] [place] [address] [address], [place], [address]. tel:[phone] [place], [place] [address], [id number], tel:[phone] [place] No Information 0 5-201 3 Sawant Oma. [address] [place] [address], [address], [facility], . tel:[phone] Referring Provider: Elias Simpson, [facility] [address] [place] [address] [address], [place], [address]. tel:[phone] [address], [id number], tel:[phone] [place] No Information Apr-0 3-201 3 Sawant Oma. [address] [place] [address], [address], [facility], . tel:[phone] Referring Provider: Elias Simpson, [facility] [address] [place] [address] [address], [place], [address]. tel:[phone] [place], [place] [address], [place], [id number], tel:[phone] [place] No Information Apr-0 1-201 3 Sawant Oma. [address] [place] [address], [address], [facility], . tel:[phone] Referring Provider: Elias Simpson, [facility] [address] [place] [address] [address], [place], [facility]. tel:[phone] [place], [place] [address], [id number], tel:[phone] [place] No Information Mar-2 7-201 3 Sawant Oma. [address] [place] [address], [address], [facility], . tel:[phone] Referring Provider: Elias Simpson, [facility] [address] [place] [address] [address], [place], [address]. tel:[phone] [place], [place] [address], [id number], tel:[phone] [place] No Information Mar-2 6-201 3 Sawant Oma. [address] [place] [address], [address], [facility], . tel:[phone] Referring Provider: Elias Simpson, [facility] [address] [place] [address] [address], [place], [address]. tel:[phone] [address], [id number], tel:[phone] [place] No Information Mar-2 5-201 3 Sawant Oma. [address] [place] [address], [address], [facility], . tel:[phone] Referring Provider: Elias Simpson, [facility] [address] [place] [address] [address], [place], [address]. tel:[phone] [place], [place] [address], [place], [id number], tel:[phone] [place] No Information Mar-2 0-201 3 Sawant Oma. [address] [place] [address], [address], [facility], . tel:[phone] Referring Provider: Elias Simpson, [facility] [address] [place] [address] [address], [place], [facility]. tel:[phone] [place], [place] [address], [place], [id number], tel:[phone] [place] No Information Mar-1 9-201 3 Sawant Oma. [address] [place] [address], [address], [facility], . tel:[phone] Referring Provider: Elias Simpson, [facility] [address] [place] [address] [address], [place], [address]. tel:[phone] [place], [place] [address], [id number], tel:[phone] [place] No Information Mar-1 8-201 3 Sawant Oma. [address] [place] [address], [address], [facility], . tel:[phone] Referring Provider: Elias Simpson, [facility] [address] [place] [address] [address], [place], [address]. tel:[phone] [address], [place], [id number], tel:[phone] [place] No Information Mar-1 5-201 3 Sawant Oma. [address] [place] [address], [address], [facility], . tel:[phone] Referring Provider: Elias Simpson, [facility] [address] [place] [address] [address], [place], [facility]. tel:[phone] [place], [place] [address], [id number], tel:[phone] [place] No Information Mar-1 3-201 3 Sawant Oma. [address] [place] [address], [address], [facility], . tel:[phone] Referring Provider: Elias Simpson, [facility] [address] [place] [address] [address], [place], [facility]. tel:[phone] [place], [place] [address] [address], [id number], tel:[phone] [place] No Information Mar-1 1-201 3 Sawant Oma. [address] [place] [address], [address], [facility], . tel:[phone] Referring Provider: Elias Simpson, [facility] [address] [place] [address] [address], [place], [address]. tel:[phone] [place], [place] [address], [id number], tel:[phone] [place] No Information Mar-0 8-201 3 Sawant Oma. [address] [place] [address], [address], [facility], . tel:[phone] Referring Provider: Elias Simpson, [facility] [address] [place] [address] [address], [place], [address]. tel:[phone] [place] [address] [address], [place], [place], [id number], tel:[phone] [place] No Information Mar-0 6-201 3 Sawant Oma. [address] [place] [address], [address], [facility], . tel:[phone] Referring Provider: Elias Simpson, [facility] [address] [place] [address] [address], [place], [address]. tel:[phone] [facility] [address] [facility], [place], [place], [id number], tel:[phone] [place] Pain in joint involving lower leg Mar-0 4-201 3 Sawant Oma. [address] [facility], [address], [place], [address], . tel:[phone] Referring Provider: Elias Simpson, [facility] [address] [place] [address] [address], [place], [address]. tel:[phone] Family History Family Member Type Diagnosis Age At Onset No Information Payers Payer name Insurance type Covered libertarian ID [facility] CI [id number] [facility] Social History Type Description Quantity Date Captured [...]
[2024-11-19 06:10] VITALS: BMI 34.9
[2024-11-19 06:15] VITALS: BP 151/89; PULSE 91; RESP 18; TEMP 36.5; O2SAT 100
--- NOTE | 2024-11-19 06:32 | WPDHPUPDATE1 ---
History and Physical Update Update Date/Time: 11/19/24 06:32 Patient seen and examined in pre-operative holding area. No interval change in medical history or symptoms. Patient recalls previous discussion of benefits and alternatives to procedure. Continues to desire to proceed with left open carpal tunnel release revision and left cubital tunnel release. Reviewed procedure, post-op expectations and risks including but not limited to bleeding, infection, injury to tendon/nerve/vessel, decreased hand function, stiffness, RSD, no change or worsening of symptoms. I discussed the possible use of assistants and their participation in the case. Patient stated understanding and signed the consent form wishing to proceed.
--- NOTE | 2024-11-19 06:33 | W.PM.PROC2 ---
Procedure Note - Detailed Date of Procedure 11/19/24 Pre-op Diagnosis Left Carpal & Cubital Tunnel syndrome Post-op Diagnosis Same (synovitis left flexor tendons) Procedure Performed left open carpal tunnel release revision and left cubital tunnel release Surgeon Dejon Bar MD Shift Manager wilber alonzo pa-c Anesthesia MAC Description of Procedure INFORMED CONSENT: The patient was seen and examined and marked in the pre-op area.? The patient signed the consent form. PROCEDURE IN DETAIL:The patient taken back to OR on the stretcher in supine position. Time out performed with anesthesia, surgeon and staff agreeing on patient's name site and surgery to be performed SCDs were placed on the lower extremities and inflated. A tourniquet was placed on {left} upper extremity and antibiotics given IV After anesthesia administered sedation I injected {10}cc 1%lido with epi and 0.5% marcaine plain at the operative sites The?{left upper extremity}?was prepped and draped in sterile fashion the??{left upper extremity} was? exsanguinated with Esmarch bandage and tourniquet inflated to 250mmHg I proceeded with making a longitudinal incision in line with the ring finger in the palm going proximally and going obliquely across the volar wrist flexion crease through skin and dermis with a 15 blade scalpel creating a radially based flap. Littler scissors were used to spread pocket proximally through the subcutaneous tissue down to the antebrachial fascia. The antebrachial fascia was incised and the median nerve identified deep to this. I proceeded with anterograde dissection through subcutaneous tissue, fascia and scar tissue protecting the median nerve throughout the procedure. Scar tissue or remnant of transverse carpal ligament was released sharply and notably thickened and compressing the median nerve. After release of the transverse carpal ligament it was noted there was a signficicant amount of synovits in the carpal tunnel and wrapped around the nerve and flexor tendons. I proceeded with tenosynovectoomy of FDSS and FDP tendons and freeing the nerve until possible sites of irritation and compression were removed. The median nerve appeared healthy with visible vaso nervorum after release. I irrigated with normal saline and closed with 3-0 vicryl and 4-0 chromic. I next proceeded with making a longitudinal incision between two heads for flexor carpi ulnaris at end of {left} cubital tunnel with 15 blade scalpel.? Littler scissors were used to spread down to FCU fascia.? An incision was made in FCU fascia and ulnar nerve identified exiting cubital tunnel.? I proceeded with complete retrograde release of the cubital tunnel including 7cm proximal for the intermuscular septum.? The nerve appeared healthy with visible vaso nervorum.? There was no subluxation on full elbow range of motion. ? I irrigated with normal saline and closure with 4-0 monocryl for dermis and subcuticular. The elbow incision was covered with Dermabond and palm with xeroform followed by 4x4s, renetta, and a volar wrist and posterior elbow splint for patient safety, security and comfort and secured with vinod bandages after the tourniquet was let down noting the hand was warm and well perfused.? Patient awaken from anesthesia and transferred to recovery in stable condition Complications - none EBL- 1cc Disposition - home in stable conditions wilber Alonzo pa-c was essential for positioning, retraction, closure and dressing placement [facility] Billing Surgery - Charge Forward: Surgery Billing ([id number] same for wilber adding modifier )
[2024-11-19] MEDS: LACTATED RINGERS 1,000 ML 30 ML IV CONT (06:35)
[2024-11-19 06:57] LABS: Glucose Point of Care 93 mg/dl (65-105)
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
[2024-11-19] MEDS: LIDO 1%/EPINEPHRINE 1:100,000 50 ML VIAL INFILTRATE (07:27)
[2024-11-19] MEDS: ceFAZolin 2 GM/D5W 50 ML 2 GM/50 ML BAG IVPB (07:27)
[2024-11-19] MEDS: BUPivacaine HCL 0.5% PF 30 ML VIAL INFILTRATE (07:27)
[2024-11-19 08:06] VITALS: BP 125/56; PULSE 82; RESP 16; O2SAT 95
[2024-11-19 08:13] LABS: Glucose Point of Care 94 mg/dl (65-105)
[2024-11-19 08:35] VITALS: BP 119/59; PULSE 73; RESP 16
== END 2024-11-19 09:00 | disposition home or self-care (01) ==
PROVIDERS: PCP Nurse Practitioner Family; Visit Provider Plastic Surgery
PROC: (CPT 64721; principal; 2024-11-19 07:30)
DX: G56.02 Carpal tunnel syndrome, left upper limb (principal); G56.22 Lesion of ulnar nerve, left upper limb; E11.9 Type 2 diabetes mellitus without complications; Z79.84 Long term (current) use of oral hypoglycemic drugs; Z79.85 Long-term (current) use of injectable non-insulin antidiabetic drugs; E66.9 Obesity, unspecified; Z68.35 Body mass index [BMI] 35.0-35.9, adult
CPT/HCPCS: 64721; 64718; 82948; 88305; J0690; J2003; J2004; J2704; J7120

== ENCOUNTER 2025-02-06 13:50 | Outpatient (CLI) | payer MEDICARE, SELFPAY ==
--- NOTE | ~2025-02-06 | MM_ITS ---
EXAMINATION: MM screening [facility] HISTORY: Screening mammogram TECHNIQUE: Craniocaudal and mediolateral oblique 3-D tomosynthesis images were obtained and synthetic 2-D images were generated. CAD analysis was submitted and interpreted. COMPARISON: 11/01/2023, 08/30/2022, 12/17/2020 BREAST PARENCHYMAL COMPOSITION:Not Dense. There are scattered areas of fibroglandular density. FINDINGS: No suspicious mass, calcification, or architectural distortion are identified in either giovanna ast to suggest malignancy. There has been no suspicious interval change. IMPRESSION: No mammographic evidence of malignancy. Recommend routine screening mammography in one year. BI-RADS Category 1: Negative Reviewed, dictated and finalized at location .
== END 2025-02-06 13:51 | disposition home or self-care (01) ==
LOC: ANHIMG 13:52
PROVIDERS: PCP Family Medicine; Visit Provider Obstetrics & Gynecology
DX: Z12.31 Encounter for screening mammogram for malignant neoplasm of breast (principal)
CPT/HCPCS: 77063; 77067

== ENCOUNTER 2025-02-09 12:27 | Outpatient (CLI) | payer MEDICARE, SELFPAY ==
--- OUTSIDE RECORDS SUMMARY | 2025-02-09 12:30 | XMS_ITS | Clinical Summary ---
Author Organization [facility] Brigida Christianson Address [address] [place] [address] Care Team Providers Care Field Operations Supervisor Name Role Phone Anshul Flores MD Primary Care Provider [phone] Allergies No known active allergies Medications omeprazole [...] Encounters Date Type Department Care Team Description 02/03/2025 External Device Data STL ABSTRACTION Provider, Abstract 01/27/2025 External Device Data ST[facility] ABSTRACTION Provider, Abstract 01/06/2025 External Device Data [facility] ABSTRACTION Provider, Abstract 01/01/2025 External Device Data [facility] ABSTRACTION Provider, Abstract 12/31/2024 External Device Data ST[facility] ABSTRACTION Provider, Abstract 12/30/2024 External Device Data STL ABSTRACTION Provider, Abstract 12/12/2024 Orders Only [facility] Oncology and Hematology - [place] [address] [place] [phone] Chris Paniagua MD 12/11/2024 Orders Only [facility] Oncology and Hematology - [place] [address] [place] [phone] Chris Paniagua MD 11/14/2024 Telephone [facility] Oncology and Hematology - [place] [address] [place] [phone] Chris Paniagua MD B12 Labs 11/13/2024 1:15 PM CDT Office Visit [facility] Oncology and Hematology - [place] [address] [place] [phone] Chris Paniagua MD Chronic anemia (Primary Dx) 11/11/2024 Orders Only [facility] Oncology and Hematology - [place] [address] [place] [phone] Chris Paniagua MD from Last 3 Months Family History Medical [...] on file 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 Gender Identity Not on file Sexual Orientation [...] 1:17 PM CDT Height 154.9 cm (5' 1) 03/13/2022 1:25 PM CDT Body Mass Index 33.97 03/13/2022 1:25 PM CDT Plan of Treatment Upcoming Encounters Date Type Department Care Team (Late st Contact Info) Description 04/02/2025 2:15 PM CDT Office Visit [facility] Oncology and Hematology - [place] [address] [facility] [address] [place] [address] Chris Paniagua MD [address] [facility] [address] [place] [address] Health Maintenance Due Date Last [...] OSTEOPOROSIS SCREENING 2016 INFLUENZA VACCINE (#1) 2024 RSV VACCINE (60+ or ) (1 - 1-dose 75+ series) 2026 Procedures Procedure Name Priority Date/Time Associated Diagnosis Comments VITAMIN B12 LEVEL Routine 12/11/2024 4:2 4 PM CDT CBC WITH DIFFERENTIAL Routine 12/11/2024 1:13 PM CDT IRON LEVEL Routine 12/11/2024 1:01 PM CDT CBC MIXED CELL DIFFERENTIAL Routine 11/10/2024 12:54 PM CDT IRON, TIBC, AND PERCENT SATURATION Routine 11/10/2024 12:52 PM CDT from Last 3 Months Results * VITAMIN B12 LEVEL (12/11/2024 4:24 PM CDT) Blood us Chris Paniagua MD CHEMISTRY ORDERABLES Final Resu lt * CBC WITH DIFFERENTIAL (12/11/2024 1:13 PM CDT) Blood us Chris Paniagua MD HEMATOLOGY ORDERABLES Final Res ult * IRON LEVEL (12/11/2024 1:01 PM CDT) Blood us Chris Paniagua MD CHEMISTRY ORDERABLES Final Resu lt * CBC MIXED CELL DIFFERENTIAL (11/10/2024 12:54 PM CDT) Blood Result [facility] us Chris Paniagua MD HEMATOLOGY ORDERABLES Final Res ult * IRON, TIBC, AND PERCENT SATURATION (11/10/2024 12:52 PM CDT) Blood us Chris Paniagua MD CHEMISTRY ORDERABLES Final Resu lt from Last 3 Months Insurance [employer] [facility] Care Teams Field Operations Supervisor Relationship Specialty Start Date End Date Anshul Flores MD [address] [place] [address] PCP - General Family Practice 02/28/23
[2025-02-09 16:23] LABS: Cholesterol 152 mg/dL (0-200); HDL Direct 62 mg/dL; Triglycerides 100 mg/dL (<150)
[2025-02-09 16:36] LABS: LDL Cholesterol Direct 56 mg/dL
[2025-02-09 16:41] LABS: Vitamin D 25 Hydroxy 75.5 ng/mL
[2025-02-09 16:52] LABS: Creatinine Urine 112.7 mg/dL
[2025-02-09 16:56] LABS: MALB Creatinine Ratio 7.5 mg/g (0-30); Microalbumin Urine Random 8.5 mg/L (0-16.7)
== END 2025-02-09 12:28 | disposition home or self-care (01) ==
LOC: ANHLAB 12:28
PROVIDERS: PCP Family Medicine; Visit Provider Nurse Practitioner Family
DX: E55.9 Vitamin D deficiency, unspecified (principal); I10 Essential (primary) hypertension; E11.9 Type 2 diabetes mellitus without complications
CPT/HCPCS: 36415; 80061; 82043; 82306; 84443

== ENCOUNTER 2025-02-24 15:40 | Outpatient (CLI) | payer MEDICARE, SELFPAY ==
--- OUTSIDE RECORDS SUMMARY | 2025-02-24 15:32 | XMS_ITS | Clinical Summary ---
Author Organization [facility] Brigida Christianson Address [address] [place] [address] Care Team Providers Care Sugar Controller Name Role Phone Anshul Flores MD Primary Care Provider [phone] Allergies No known active allergies Medications omeprazole [...] STL ABSTRACTION Provider, Abstract 12/12/2024 Orders Only [facility] Oncology and Hematology [place] [address] [place] [phone] Chris Paniagua MD 12/11/2024 Orders Only [facility] Oncology and Hematology - [place] [address] [place] [phone] Chris Paniagua MD from Last 3 Months [...] on file 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 [address] [place] [address] Health Maintenance Due Date Last [...] 2001 OSTEOPOROSIS SCREENING 2016 INFLUENZA VACCINE (#1) 2025 RSV VACCINE (60+ or ) (1 - 1-dose 75+ series) 2026 Procedures Procedure Name Priority Date/Time Associated Diagnosis Comments VITAMIN B12 LEVEL Routine 12/11/2024 4:24 PM CDT CBC WITH DIFFERENTIAL Routine 12/11/2024 1:13 PM CDT IRON LEVEL Routine 12/11/2024 1:01 PM CDT from Last 3 Months Results * VITAMIN B12 LEVEL (12/11/2024 4:24 PM CDT) Blood Chris Paniagua MD CHEMISTRY ORDERABLES Final Resu lt * CBC WITH DIFFERENTIAL (12/11/2024 1:13 PM CDT) Blood Chris Paniagua MD HEMATOLOGY ORDERABLES Final Res ult * IRON LEVEL (12/11/2024 1:01 PM CDT) Blood us Chris Paniagua MD CHEMISTRY ORDERABLES Final Resu lt from Last 3 Months Insurance [employer] [facility] Care Teams Sugar Controller Relationship Specialty Start Date End Date Anshul Flores MD [address] [place] [phone] PCP - General Family Practice 02/28/23
[2025-02-24 17:15] LABS: Thyroid Stimulating Hormone < 0.015 uIU/mL (0.465-4.680)
[2025-02-24 17:18] LABS: Free T4 Free Thyroxine 1.14 ng/dL (0.78-2.19)
== END 2025-02-24 15:41 | disposition home or self-care (01) ==
PROVIDERS: PCP Family Medicine; Visit Provider Nurse Practitioner Family
DX: E07.9 Disorder of thyroid, unspecified (principal); R79.89 Other specified abnormal findings of blood chemistry
CPT/HCPCS: 36415; 84439; 84443

== ENCOUNTER 2025-03-07 11:46 | Outpatient (CLI) | payer MEDICARE, SELFPAY ==
--- NOTE | ~2025-03-07 | US_ITS ---
US thyroid INDICATION: Decreased TSH levels. TECHNIQUE: Real-time sonographic images of the thyroid gland were obtained. COMPARISON: No prior studies for comparison. FINDINGS: The right thyroid lobe measures 3.6 x 1 x 1.1 cm. The left thyroid lobe measures 3.7 x 1.1 x 1 cm. Isthmus measures 4 mm.. There is normal echotexture and echogenicity throughout the thyroid gland. In the right lobe there is a solid hyperechoic wider than tall without punctate echogenic foci , measuring 8 x 8 x 7 mm, TR 3, likely benign. Normal vascular flow is present. IMPRESSION: 1. Probable benign right thyroid mass measuring 8 mm, TR 3. No follow-up is required. Reviewed, dictated and finalized at location B. IMPRESSION: 1. Probable benign right thyroid mass measuring 8 mm, TR 3. No follow-up is re quired.
== END 2025-03-07 11:47 | disposition home or self-care (01) ==
LOC: MICIMG 11:47
PROVIDERS: PCP Family Medicine; Visit Provider Nurse Practitioner Family
DX: R79.89 Other specified abnormal findings of blood chemistry (principal)
CPT/HCPCS: 76536

== ENCOUNTER 2025-06-10 12:54 | Outpatient (CLI) | payer MEDICARE, SELFPAY ==
--- NOTE | ~2025-06-10 | CT_ITS ---
EXAMINATION: CT abdomen w con DATE: 06/10/2025 13:23 INDICATION: Functional dyspepsia. TECHNIQUE: Computed tomography (CT) of the abdomen was performed with 100 mL Omnipaque 350 intravenous contrast. Automated exposure control and iterative reconstruction technique were employed. The dose-length product was 468.16 mGy-cm. COMPARISON: Chest CT 04/28/2020 FINDINGS: The visualized portions of lung bases demonstrate mild atelectasis. No pleural effusion. The heart size is normal. No pericardial effusion. There is a small sliding hiatal hernia. The liver, gallbladder, and pancreas are normal. There is a 12 mm hyperdense mass in the spleen, likely a hamartoma or hemangioma. The adrenal glands and kidneys are normal. There are no dilated loops of bowel. There is moderate thoracic spondylosis and severe lumbar spondylosis. IMPRESSION: 1. Small sliding hiatal hernia. Reviewed, dictated and finalized at location E.
[2025-06-10 13:13] LABS: Estimated Glomerular Filt Rate > 60
== END 2025-06-10 12:55 | disposition home or self-care (01) ==
PROVIDERS: PCP Family Medicine; Visit Provider Nurse Practitioner Family
DX: K44.9 Diaphragmatic hernia without obstruction or gangrene (principal)
CPT/HCPCS: 74160; Q9967